=== PATIENT | female | born 1970 | race Caucasian/White ===

== ENCOUNTER 2023-05-13 08:26 | Outpatient (AMB) | payer OTHER, SELFPAY ==
[2023-05-13 08:49] VITALS: BP 160/100; PULSE 102; RESP 12; TEMP 36.5; O2SAT 99; BMI 33.3
--- NOTE | 2023-05-13 08:49 | AM.OFFWIN_ITS ---
Intake Vital Signs 05/13/23 08:49 05/13/23 09:04 Height 5 ft 5 in Weight 200 lb BMI 33.3 BP 160/100 H 148/92 H Blood Pressure Location Rt brachial Position Sitting Respiration 12 Pulse 102 H Pulse Source Pulse Oximeter Temp 97.7 F Temp Source Temporal Artery Scan Pulse Oximetry (%) 99 Oxygen Delivery Method Room Air Intake Visit Reasons: Questioning poison kalin Intake Note: Patient states that it is everywhere on body and is starting to maneuver onto face. Patient states that it started a couple days ago and has tried over the counter medication but those haven't been working. Patient would also like a script for Valcyclovir. 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 She is on amlodipine and lisinopril but has not been taking them consistently. [facility] Social History Patient Tobacco Use Status: Never used Tobacco Review of Systems Const Details: See HPI Physical Exam Vital Signs: Last Vital Signs Temp 97.7 F 05/13/23 08:49 Pulse 102 H 05/13/23 08:49 Resp 12 05/13/23 08:49 BP 148/92 H 05/13/23 09:04 Pulse Ox 99 05/13/23 08:49 Oxygen Delivery Method Room Air 05/13/23 08:49 BMI result Body Mass Index 33.3 Skin Other: Rash with small blisters on legs and arms Cold sore on lower lip Assessment & Plan Assessment & Plan (1) Contact dermatitis: Code(s): L25.9 - Unspecified contact dermatitis, unspecified cause Plan: Contact dermatitis. Unclear if this is due to poison kalin or another source Will give her betamethasone ointment and short course of prednisone. Advise she had void salt as her blood pressure is high-also advised she resume her BP medications and make them more consistent. Also advised Benadryl 25 mg every 4-6 hours and can take 50 mg at bedtime (2) Hypertension: Code(s): I10 - Essential (primary) hypertension Plan: Poorly controlled blood pressure and she has not been consistent with her medications Has not taken them today BP does decrease somewhat with relaxation Advised she take her medications today and work on consistency Follow-up with PCP (3) Cold sore: Code(s): B00.1 - Herpesviral vesicular dermatitis Plan: Will give her valacyclovir Medications: New betamethasone valerate 0.1% 1 appl topical BID 10 days PRN 45 grams 1RF skin irritation prednisone 40 mg (2 x 20 mg) PO DAILY 4 days 8 tabs 0RF valacyclovir 500 mg PO Q12H 10 days 20 tabs 0RF Coding Level of Care Code New Pt Level 4 (59941) Diagnoses Contact dermatitis L25.9 Hypertension I10 Cold sore B00.1
[2023-05-13 09:04] VITALS: BP 148/92
== END 2023-05-13 09:02 | disposition home or self-care (01) ==
PROVIDERS: PCP Internal Medicine; Visit Provider Family Medicine
DX: L25.9 Unspecified contact dermatitis, unspecified cause (principal); I10 Essential (primary) hypertension; B00.1 Herpesviral vesicular dermatitis
CPT/HCPCS: 99204